=== PATIENT | female | born 1990 | race American Indian/Alaskan Native ===

== ENCOUNTER 2017-05-24 09:30 | Emergency (ER) | payer OTHER ==
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
[2017-05-24] MEDS ORDERED: TORADOL IM ONE (13:57)
[2017-05-24] MEDS ORDERED: FLEXERIL PO ONE (13:57)
[2017-05-24 14:17] VITALS: BP 110/76
== END 2017-05-24 14:17 | disposition home or self-care (01) ==
LOC: ED 09:30
DX: S46.911A Strain of unspecified muscle, fascia and tendon at shoulder and upper arm level, right arm, initial encounter (principal); S46.912A Strain of unspecified muscle, fascia and tendon at shoulder and upper arm level, left arm, initial encounter; M79.1 Myalgia; F17.200 Nicotine dependence, unspecified, uncomplicated; V49.49XA Driver injured in collision with other motor vehicles in traffic accident, initial encounter; Y92.410 Unspecified street and highway as the place of occurrence of the external cause; Y93.89 Activity, other specified; Y99.8 Other external cause status
CPT/HCPCS: 96372; 99282; J1885

== ENCOUNTER 2017-06-01 08:46 | Emergency (ER) | payer OTHER ==
[2017-06-01 09:09] VITALS: BP 91/67
[2017-06-01] MEDS ORDERED: TORADOL IM ONE (14:08)
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
[2017-06-01 14:50] LABS: Bilirubin,Urine NEG (Negative); Blood,Urine NEG (Negative); Ketones,Urine NEG (Negative); Leukocyte Esterase,Urine NEG (Negative); Mucus,Urine 2+ /HPF; Nitrite,Urine NEG (Negative); Protein,Urine <15 mg/dL mg/dL (Negative); Urobilinogen,Urine < 2.0 mg/dL (<2.0)
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
== END 2017-06-01 17:09 | disposition home or self-care (01) ==
LOC: ED 08:46
DX: S39.012A Strain of muscle, fascia and tendon of lower back, initial encounter (principal); X58.XXXA Exposure to other specified factors, initial encounter; Y93.9 Activity, unspecified; Y92.9 Unspecified place or not applicable; Y99.9 Unspecified external cause status
CPT/HCPCS: 72100; 81001; 81025; 96372; 99283; J1885

== ENCOUNTER 2017-07-01 12:38 | Emergency (ER) | payer OTHER ==
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
[2017-07-01] MEDS ORDERED: DECADRON IM ONE (16:03)
[2017-07-01] MEDS ORDERED: TORADOL IM ONE (16:03)
--- NOTE | 2017-07-01 16:35 | XRay Report ---
FINAL REPORT PROCEDURE: XR SPINE CERVICAL 2-3V TECHNIQUE: AP, open-mouth, and lateral views of the cervical spine are submitted. HISTORY: neck pain COMPARISON: None FINDINGS: There is no evident fracture or subluxation. Cervical flexion is noted. Intervertebral disc heights and facet joints are intact. There is no blastic or lytic lesion. The atlantodental articulation is intact. IMPRESSION: Cervical flexion either positional or related to spasm. No focal osseous abnormality. If symptoms persist consider MRI for further evaluation particularly to evaluate for disc herniation, ligamentous injury and stenosis particularly related to soft disc.
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
[2017-07-01 18:12] VITALS: BP 124/88
== END 2017-07-01 18:11 | disposition home or self-care (01) ==
LOC: ED 12:38
DX: M54.2 Cervicalgia (principal); M54.9 Dorsalgia, unspecified
CPT/HCPCS: 72040; 72072; 96372; 99283; J1100; J1885